=== PATIENT | female | born 1960 | race Caucasian/White ===

== ENCOUNTER 2020-01-11 16:42 | IRF | payer MEDICARE, MEDICAID, SELFPAY ==
--- NOTE | 2020-01-11 16:42 | ADMGEN ---
This patient, Fabiola Moncada, was admitted to [facility] Room 220-02. Patient/family oriented to hospital policies and general routines including ID bracelet, bed and alarms, visiting hours, pain management, procedures, bathroom and other care routines, personal items, smoking policy, room service/diet, and visiting hours. Valuables list has been completed. Information on how to activate the Rapid Response Team has been discussed. Patient/Family are encouraged to report perceived risks to care and to ask questions if they do not understand what they are told or what they should do.
[2020-01-11 18:51] VITALS: BMI 33.1
[2020-01-11 18:52] VITALS: BP 113/67; PULSE 78; RESP 18; TEMP 37; O2SAT 96
[2020-01-11] MEDS: SALMETEROL XINAFOATE 50 MCG DISKUS 1 PUFF INHALATION (20:06)
[2020-01-11] MEDS: SIMVASTATIN 20 MG TABLET 40 MG PO (21:43)
[2020-01-11] MEDS: GABAPENTIN 300 MG CAPSULE 600 MG PO (21:44)
[2020-01-11 22:00] VITALS: BP 114/51; PULSE 70; RESP 18; TEMP 35.8; O2SAT 98
[2020-01-12 05:14] LABS: Basophils Absolute Auto 0.1 K/mm3 (0.0-0.1); Basophils Percent Auto 0.6 % (0.2-1.2); Eosinophils Absolute Auto 0.7 K/mm3 (0-0.3); Hematocrit 25.9 % (37.0-47.0); Hemoglobin 8.1 g/dL (12.0-15.0); Immature Granulocyte Absolute 0.15 K/mm3 (0.00-0.031); Immature Granulocyte Percent A 1.8 % (0-0.5); Lymphocytes Absolute Auto 2.28 K/mm3 (0.9-3.2); Lymphocytes Percent Auto 27.3 % (18.3-44.2); Mean Corpuscular HGB Conc 31.3 g/dl (32-36); Mean Corpuscular Volume 89.6 fl (80-100); Mean Platelet Volume 7.9 fl (7.4-10.4); Monocytes Absolute Auto 0.7 K/mm3 (0.1-0.6); Monocytes Percent Auto 8.9 % (2.6-8.5); Neutrophils Absolute Auto 4.5 K/mm3 (1.3-6.7); Neutrophils Percent Auto 53.4 % (45.5-73.1); Nucleated Red Blood Cells Perc 0.2 % (0.0-0.2); Platelet Count Result 548 k/mm3 (150-375); Red Blood Count 2.89 M/mm3 (4.2-5.4); Red Cell Distribution Width 14.6 % (11.5-14.5); White Blood Count 8.4 K/mm3 (4.5-10.0)
[2020-01-12 05:30] LABS: Blood Urea Nitrogen 7 mg/dL (7-17); Calcium 8.8 mg/dL (8.4-10.2); Carbon Dioxide 32 mmol/L (22-30); Chloride 103 mmol/L (98-107); Estimated CRCL calculation 90 ml/min; Estimated Glomerular Filt Rate > 60; Glucose 100 mg/dL (65-105); Potassium 3.7 mmol/L (3.4-5.0); Sodium 138 mmol/L (137-145)
[2020-01-12 05:35] LABS: Hemoglobin A1C 6.3 % (<5.7)
[2020-01-12] MEDS: GABAPENTIN 300 MG CAPSULE 600 MG PO ×3 (05:39→21:21)
[2020-01-12 06:00] VITALS: BP 129/59; PULSE 60; RESP 18; TEMP 35.5; O2SAT 100
[2020-01-12 08:00] VITALS: PULSE 60; RESP 18; O2SAT 100
[2020-01-12] MEDS: SALMETEROL XINAFOATE 50 MCG DISKUS 1 PUFF INHALATION ×2 (08:03→20:52)
[2020-01-12] MEDS: DULOXETINE HCL 30 MG CAPSULE.DR PO (09:31)
[2020-01-12] MEDS: NABUMETONE 750 MG TABLET PO ×2 (09:31→17:22)
[2020-01-12] MEDS: LORATADINE 10 MG TABLET PO (09:31)
[2020-01-12] MEDS: ASPIRIN 81 MG CHEWABLE TABLET PO (09:31)
[2020-01-12] MEDS: FLUTICASONE PROPIONATE 0.05% NA SPR 16 GM BTL (*BKC) 2 SPRAY NASAL (09:32)
[2020-01-12] MEDS: FERROUS SULFATE 324 MG TABLET PO (09:32)
[2020-01-12] MEDS: PANTOPRAZOLE 40 MG TABLET PO (09:33)
[2020-01-12] MEDS: LIDOCAINE 5% PATCH 1 PATCH TOPICAL (09:33)
--- NOTE | 2020-01-12 13:06 | RPD ---
INDIVIDUALIZED PLAN OF CARE FOR Fabiola Moncada Brief Synthesis of Pre-Admission Screen, Post-Admission Evaluation and Therapy Evaluations: The patient presents to rehab with a right lower extremity osteomyelitis s/p BKA. Comorbidities include right below the knee amputation, hypertension, COPD, CAD, depression, peripheral neuropathy, peripheralr vascular disease, hyperlipidemia, peripheral arterial disease, intermittent hypotension, normocytic anemia, thrombocytosis, chronic back pain, GERD. The patient?s needs will be best met in an intensive program vs. at a lower level of care. The patient requires physician services for medical oversight, management of post-op complications in the setting of present comorbidities, and pain management. Post-op complications have included acute blood loss anemia, hypertension, hypotension, nausea and vomiting, hypocalcemia, leukocytosis, acute postoperative pain, and generalized weakness. The patient requires nursing services for anticoagulation therapy, DVT prophylactics, possible IV administration, infection protection, medication management and education, pressure relief, and wound care. Deficits include:ADLs, Balance, Endurance, Family Training/Education, Mobility, Pain Management, ROM, Safety, Strength, and Transfers. Pad Machine Operator/Case Management for: Discharge Planning and Patient/Family Counseling Physical Therapy: 5 days per week for 90 minutes. Treatments may include: Therapeutic Exercise, Gait Training, Neuromuscular Re-education, Transfer Training, Community Reintegration, Bed Mobility, Patient/Family Education, Wheelchair Mobility Group Therapy/Concurrent Therapy Rationales: -Improve attention span during functional activities in a distracted environment. -Enhance problem solving and/or adequate judgment skills during functional activities in a distracted environment. -Promote increased safety awareness in a distracted environment to reduce fall risk with functional tasks, transfers, and ambulation to allow a more safe, self-sufficient return to the home environment. -Improve dynamic balance skills to promote safety and independence with functional activities in a distracted environment for maximum gain. Occupational Therapy: 5 days per week for 90 minutes. Treatments may include: Therapeutic Exercise, Therapeutic Activity, Cognitive Training, Self-Care Transfer Training, Community Reintegration, Home Management, Patient/Family Education, Wheelchair Mobility Training, Energy Conservation Training Group Therapy/Concurrent Therapy Rationales: -Allow therapist to observe and teach generalization and carry-over of skills learned in individual therapy. -Enhance problem solving and sequencing skills during therapeutic activities in a distracted environment. -Promote increased safety awareness in a realistic setting to reduce fall risk with functional tasks due to visual and verbal distractions. -Increase functional level with ADLs, ADL transfers and use of adaptive equipment through therapeutic activities with others while promoting safety to allow a more safe, self-sufficient return home. Medical Prognosis: Good Anticipated Length of Stay: 14 days Rehab Goals: Eating Goal: 06-Independent Oral Hygiene Goal: 06-Independent Toileting Hygiene Goal: 06-Independent Shower/Bathe Self Goal: 06-Independent Upper Body Dressing Goal: 06-Independent Lower Body Dressing Goal: 06-Independent Putting On/Taking Off Footwear Goal: 06-Independent Rolling Left and Right Goal: 06-Independent Sit to Lying Goal: 06-Independent Lying to Sitting on Side of Bed Goal: 06-Independent Sit to Stand Goal: 06-Independent Chair/Gky-bp-Erqms Transfer Goal: 06-Independent Toilet Transfer Goal: 06-Independent Car Transfer Goal: 06-Independent Walk 10' Goal: 06-Independent Walk 50' with Two Turns Goal: 06-Independent Walk 150' Goal: 06-Independent Walk 10' on Uneven Surface Goal: 06-Independent 1 Step (Curb) Goal: 06-Independent 4 Step
[2020-01-12 14:00] VITALS: BP 126/59; PULSE 66; RESP 20; TEMP 26.6; O2SAT 99
--- NOTE | 2020-01-12 14:44 | REHAB_ITS ---
DATE OF SERVICE: 01/12/2020 A 59-year-old right-handed female has been admitted to [facility] acute rehab with primary rehab impairment category of amputation of the lower extremity and the etiological diagnosis of right lower extremity osteomyelitis for which she has undergone right below-knee amputation. The patient was seen [id number] on 01/12/2020 at 10:00 a.m. HISTORY OF PRESENT ILLNESS: A 59-year-old right-handed female with past medical history of: 1. Hypertension. 2. COPD. 3. Neuropathy. 4. Peripheral vascular disease with history of having had revascularization of the right lower extremity. 5. Osteomyelitis of the right calcaneum with a history of right calcaneal removal in 08/2019, initially presented to [facility] from [facility]SH on 01/02/2020 for suspected osteomyelitis of the right heel. After initial surgery in August, she was discharged to a assisted facility where she completed 6 weeks of IV antibiotics including vancomycin, clindamycin, and Flagyl, but in November of 2019, the patient had a right ankle fracture for which she underwent ORIF and was issued a walking boot. She did well up until around 12/31, but then started having increasing pain in her right lower extremity along with swelling, bloody discharge. At that time, radiological investigation of the right foot and ankle documented chronic deformity of the right medial malleolus with soft tissue swelling, extensive deformity with mixed lucency and sclerosis of the calcaneal bone with chronically deformed bones of the mid hind foot with sclerosis and osteophytosis and diffuse soft tissue swelling. At that time, the right lower extremity arterial duplex ultrasound revealed possible areas of stenosis of superficial femoral artery and on 01/04, she developed significant leukocytosis, sepsis. Workup was negative with exception of the right lower extremity infection and the UA revealed mild UTI. ID was consulted and she was started on IV vancomycin, cefepime, and Flagyl. Orthopedic and vascular surgeons were consulted. At that time, additional radiological investigation revealed fluid within the joint space with gas suggestive of [id number] osteo and large fluid collection between the anterior tibial and peroneal arteries that were consistent with septic arthritis and abscess formation. She underwent right below-knee amputation on 01/[address] Johnny Santana. Postoperatively, she developed postoperative pain, anemia, hypertension, intermittent hypotension, nausea, hypocalcemia, leukocytosis, acute postoperative pain and generalized weakness. 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 The patient is awake, alert, and oriented x4. She was discharged to [facility] on aspirin for DVT prophylaxis. She has not traveled outside the [place] or had contact with someone who is ill or who has travelled outside the [place] in the last 21 days. She has not traveled to the area of the [place] that is experiencing known transmission of the coronavirus and has not had close personal contact with anyone that has. She does not have a fever. She is not experiencing lower respiratory illness symptom, but she does complain of pain, it is out of control. She was initiated at the acute care facility and was transferred to from the [facility] on 01/11/2020. SURGERY OR FALLS: The patient has had major surgery in the last 100 days prior to admission. She has had falls in the past year. She has had no falls with injury in the last year. She has had major surgery this admission and has had falls without injury in the last 6 months as well. PAST MEDICAL HISTORY: 1. Right ankle fracture in November of 2019. 2.
[2020-01-12] MEDS: SIMVASTATIN 20 MG TABLET 40 MG PO (21:20)
[2020-01-12 22:00] VITALS: BP 148/85; PULSE 77; RESP 18; TEMP 36.4; O2SAT 97
[2020-01-13] MEDS: GABAPENTIN 300 MG CAPSULE 600 MG PO ×3 (05:52→21:28)
[2020-01-13 06:00] VITALS: BP 149/73; PULSE 60; RESP 18; TEMP 36.4; O2SAT 96
[2020-01-13] MEDS: SALMETEROL XINAFOATE 50 MCG DISKUS 1 PUFF INHALATION ×2 (08:38→20:47)
[2020-01-13 08:40] VITALS: O2SAT 97
[2020-01-13] MEDS: DULOXETINE HCL 30 MG CAPSULE.DR PO (08:57)
[2020-01-13] MEDS: FERROUS SULFATE 324 MG TABLET PO (08:57)
[2020-01-13] MEDS: NABUMETONE 750 MG TABLET PO ×2 (08:57→17:04)
[2020-01-13] MEDS: FLUTICASONE PROPIONATE 0.05% NA SPR 16 GM BTL (*BKC) 2 SPRAY NASAL (08:57)
[2020-01-13] MEDS: ASPIRIN 81 MG CHEWABLE TABLET PO (08:57)
[2020-01-13] MEDS: LORATADINE 10 MG TABLET PO (08:58)
[2020-01-13] MEDS: LIDOCAINE 5% PATCH 1 PATCH TOPICAL (08:58)
[2020-01-13] MEDS: PANTOPRAZOLE 40 MG TABLET PO (08:58)
--- NOTE | 2020-01-13 12:32 | WPDNEURORHBP ---
Subjective Date/time seen: S/P RBK amputation for osteomyelitis with hypertension,COPD,Neuropathy ,PVD, and H/Ndjfkhgbuohlna65/21/20 12:32 Review of Systems Review of Systems: All systems reviewed & are unremarkable except as noted in HPI and below Functional Status Ambulation Ability Ability to Ambulate 10 Feet: Contact Guard Ambulation Assistive Devices: Walker, Wheeled Exam Const: General: cooperative, comfortable, no acute distress and well developed Orientation/consciousness: patient oriented x3 Other: amputee HENMT: Head: normal to inspection Ears: hearing grossly normal bilaterally General nose exam: Normal external nose present and No nasal discharge present Face and sinus: normal facial exam Mouth: Yes Normal oral and palatal mucosa present Eyes: General: appearance normal, both eyes and all related structures Neck: Neck: full ROM and no lymphadenopathy Resp: Effort & Inspection: normal respiratory effort Auscultation: clear to auscultation bilaterally Cardio: Rate: regular rate Rhythm: regular rhythm GI: Auscultation: normal bowel sounds Skin: General skin exam: no rashes or lesions noted Neuro: General: patient oriented x3 Cranial nerves: Yes CN's II-XII intact bilaterally Sensory Exam: Sensory deficit (Neuro) Extrem: General: normal to inspection Psych: Appearance: grossly normal Objective Data Vital Signs Vital Signs: Vital Signs - 24 hr 01/12/20 14:00 01/12/20 22:00 01/13/20 06:00 Temperature 26.6 C L 36.4 C 36.4 C Pulse Rate 66 77 60 Respiratory Rate 20 18 18 Blood Pressure 126/59 L 148/85 H 149/73 H Pulse Oximetry 99 97 96 01/13/20 08:40 Temperature Pulse Rate Respiratory Rate Blood Pressure Pulse Oximetry 97 Intake/Output Intake/Output: Intake & Output 01/10/20 01/11/20 01/12/20 01/13/20 23:59 23:59 23:59 23:59 Intake Total 720 240 Balance 720 240 Meds/Results Medications: Active Medications Generic Name Dose Route Start Last Admin Trade Name Freq PRN Reason Stop Dose Admin Acetaminophen 500 mg 01/11/20 18:37 Tylenol Tablet PO Q6H PRN pain 1-5 Hydrocodone Bitart/Acetaminophen 1 tab 01/12/20 09:40 01/13/20 09:09 [place] 5-325 Mg PO 1 tab Q6H PRN Administration Pain 6-10 Albuterol 2.5 mg 01/12/20 18:46 Albuterol Sulf Neb 2.5mg/0.5ml INHALATION Q4HRT PRN Shortness Of Breath Artificial Tears 1 drop 01/11/20 18:37 Artificial Tears EACH EYE TID PRN Dry Eye(S) Aspirin 81 mg 01/12/20 09:00 01/13/20 08:57 Aspirin Chewable PO 81 mg DAILY VALENCIA Administration Duloxetine HCl 30 mg 01/12/20 09:00 01/13/20 08:57 Cymbalta PO 30 mg DAILY VALENCIA Administration Ferrous Sulfate 324 mg 01/12/20 08:00 01/13/20 08:57 Ferrous Sulfate PO 324 mg DAILY@0800 VALENCIA Administration Fluticasone Propionate 2 spray 01/12/20 09:00 01/13/20 08:57 Flonase 0.05% Nasal [place] NASAL 2 spray DAILY VALENCIA Administration Gabapentin 600 mg 01/11/20 22:00 01/13/20 05:52 Neurontin PO 600 mg Q8HR VALENCIA Administration Lidocaine 1 patch 01/12/20 09:00 01/13/20 08:58 Lidoderm TOPICAL 1 patch DAILY VALENCIA Administration Loratadine 10 mg 01/12/20 09:00 01/13/20 08:58 Claritin PO 10 mg DAILY VALENCIA Administration Nabumetone 750 mg 01/12/20 08:00 01/13/20 08:57 Relafen PO 750 mg BIDWM VALENCIA Administration Pantoprazole Sodium 40 mg 01/12/20 09:00 01/13/20 08:58 Protonix PO 40 mg QAM VALENCIA Administration Polyethylene Glycol 17 gm 01/11/20 18:37 Miralax PO DAILY PRN Constipation Salmeterol Xinafoate 1 puff 01/11/20 20:00 01/13/20 08:38 Serevent 50 Mcg Diskus INHALATION 1 puff Q12HRT VALENCIA Administration Senna/Docusate Sodium 1 tab 01/11/20 18:37 Senokot S Tablet PO HS PRN Constipation Simvastatin 40 mg 01/11/20 21:00 01/12/20 21:20 Zocor PO 40 mg HS VALENCIA Administration Progress
[2020-01-13 14:00] VITALS: BP 127/80; PULSE 70; RESP 18; TEMP 36.9; O2SAT 99
[2020-01-13 20:00] VITALS: PULSE 60; RESP 18; O2SAT 96
[2020-01-13 20:48] VITALS: PULSE 72; RESP 16; O2SAT 96
[2020-01-13] MEDS: SIMVASTATIN 20 MG TABLET 40 MG PO (21:28)
[2020-01-13 21:58] VITALS: BP 124/57; PULSE 60; RESP 18; TEMP 36.1; O2SAT 96
[2020-01-14] MEDS: GABAPENTIN 300 MG CAPSULE 600 MG PO ×3 (05:56→21:16)
[2020-01-14 06:00] VITALS: BP 125/70; PULSE 64; RESP 18; TEMP 36.1; O2SAT 100
[2020-01-14] MEDS: DULOXETINE HCL 30 MG CAPSULE.DR PO (08:45)
[2020-01-14] MEDS: NABUMETONE 750 MG TABLET PO ×2 (08:45→17:20)
[2020-01-14] MEDS: FLUTICASONE PROPIONATE 0.05% NA SPR 16 GM BTL (*BKC) 2 SPRAY NASAL (08:45)
[2020-01-14] MEDS: FERROUS SULFATE 324 MG TABLET PO (08:45)
[2020-01-14] MEDS: ASPIRIN 81 MG CHEWABLE TABLET PO (08:45)
[2020-01-14] MEDS: PANTOPRAZOLE 40 MG TABLET PO (08:46)
[2020-01-14] MEDS: LORATADINE 10 MG TABLET PO (08:46)
[2020-01-14] MEDS: LIDOCAINE 5% PATCH 1 PATCH TOPICAL (08:46)
[2020-01-14] MEDS: SALMETEROL XINAFOATE 50 MCG DISKUS 1 PUFF INHALATION ×2 (09:15→20:38)
[2020-01-14 09:55] VITALS: O2SAT 96
[2020-01-14 13:17] VITALS: BMI 33.1
[2020-01-14 14:00] VITALS: BP 130/72; PULSE 68; RESP 20; TEMP 36.9; O2SAT 100
[2020-01-14 20:00] VITALS: PULSE 70; RESP 18; O2SAT 98
[2020-01-14] MEDS: SIMVASTATIN 20 MG TABLET 40 MG PO (21:16)
[2020-01-14 21:52] VITALS: BP 143/52; PULSE 70; RESP 18; TEMP 36.1; O2SAT 98
[2020-01-15 06:00] VITALS: BP 134/72; PULSE 92; RESP 18; TEMP 36.4; O2SAT 99
[2020-01-15] MEDS: GABAPENTIN 300 MG CAPSULE 600 MG PO ×3 (06:13→21:02)
[2020-01-15] MEDS: SALMETEROL XINAFOATE 50 MCG DISKUS 1 PUFF INHALATION ×2 (07:56→19:46)
[2020-01-15] MEDS: NABUMETONE 750 MG TABLET PO ×2 (09:37→17:27)
[2020-01-15] MEDS: LIDOCAINE 5% PATCH 1 PATCH TOPICAL (09:37)
[2020-01-15] MEDS: DULOXETINE HCL 30 MG CAPSULE.DR PO (09:38)
[2020-01-15] MEDS: PANTOPRAZOLE 40 MG TABLET PO (09:38)
[2020-01-15] MEDS: ASPIRIN 81 MG CHEWABLE TABLET PO (09:38)
[2020-01-15] MEDS: LORATADINE 10 MG TABLET PO (09:38)
[2020-01-15] MEDS: FLUTICASONE PROPIONATE 0.05% NA SPR 16 GM BTL (*BKC) 2 SPRAY NASAL (09:38)
[2020-01-15] MEDS: FERROUS SULFATE 324 MG TABLET PO (09:38)
[2020-01-15 14:00] VITALS: BP 120/70; PULSE 79; RESP 18; TEMP 36.8; O2SAT 95
--- NOTE | 2020-01-15 14:00 | WPDNEURORHBP ---
Subjective Date/time seen: 01/15/20 14:00 Interval history: this 59-year-old is here after having had right BKA the etiology of which is combined peripheral neuropathy peripheral vascular disease and osteomyelitis the patient is significant amount of pain and we have to increase some of the narcotic. She uses oxygen at night and uses the stump protector which will continue through January 24 Beside the pain and discomfort the patient denies any headache nausea vomiting chest pain or shortness of breath Review of Systems Review of Systems: All systems reviewed & are unremarkable except as noted in HPI and below Functional Status Ambulation Ability Ability to Ambulate 10 Feet: Contact Guard Ability to Ambulate 50 Feet With 2 Turns: Contact Guard Ambulation Assistive Devices: Walker, Wheeled Exam Const: General: no acute distress and uncomfortable HENMT: General nose exam: Normal nares present Mouth: Yes moist mucous membranes Eyes: General: appearance normal, both eyes and all related structures Neck: Neck: supple and no JVD Resp: Effort & Inspection: normal respiratory effort Auscultation: clear to auscultation bilaterally Cardio: Rate: regular rate Rhythm: regular rhythm GI: GI Palp: Yes Soft to palpation Auscultation: normal bowel sounds Skin: General skin exam: normal color and no rashes or lesions noted Neuro: Other: patient is awake alert well oriented denies any headache nausea vomiting chest pain shortness of breath she does have evidence of generalized weakness related to multiple factors which of course include the peripheral vascular disease in the peripheral neuropathy however progressing in the rehab fairly well needing assistance all the activities of daily living at this point Extrem: Other: the right BKA seem to be healthy Psych: Mental Status: mental status grossly normal Objective Data Vital Signs Vital Signs: Vital Signs - 24 hr 01/14/20 20:00 01/14/20 21:52 01/15/20 06:00 Temperature 36.1 C L 36.4 C Pulse Rate 70 70 92 Respiratory Rate 18 18 18 Blood Pressure 143/52 H 134/72 Pulse Oximetry 98 98 99 Intake/Output Intake/Output: Intake & Output 01/12/20 01/13/20 01/14/20 01/15/20 23:59 23:59 23:59 23:59 Intake Total 720 720 720 600 Balance 720 720 720 600 Meds/Results Medications: Active Medications Generic Name Dose Route Start Last Admin Trade Name Freq PRN Reason Stop Dose Admin Acetaminophen 500 mg 01/11/20 18:37 Tylenol Tablet PO Q6H PRN pain 1-5 Hydrocodone Bitart/Acetaminophen 1 tab 01/15/20 11:00 01/15/20 11:51 [place] 5-325 Mg PO 1 tab Q4H VALENCIA Administration Albuterol 2.5 mg 01/12/20 18:46 Albuterol Sulf Neb 2.5mg/0.5ml INHALATION Q4HRT PRN Shortness Of Breath Artificial Tears 1 drop 01/11/20 18:37 Artificial Tears EACH EYE TID PRN Dry Eye(S) Aspirin 81 mg 01/12/20 09:00 01/15/20 09:38 Aspirin Chewable PO 81 mg DAILY VALENCIA Administration Diphenoxylate HCl/Atropine 1 tablet 01/14/20 14:48 01/14/20 16:02 Lomotil Tab 2.5 Mg PO 1 tablet PRN PRN Administration Diarrhea Duloxetine HCl 30 mg 01/12/20 09:00 01/15/20 09:38 Cymbalta PO 30 mg DAILY VALENCIA Administration Ferrous Sulfate 324 mg 01/12/20 08:00 01/15/20 09:38 Ferrous Sulfate PO 324 mg DAILY@0800 VALENCIA Administration Fluticasone Propionate 2 spray 01/12/20 09:00 01/15/20 09:38 Flonase 0.05% Nasal [place] NASAL 2 spray DAILY VALENCIA Administration Gabapentin 600 mg 01/11/20 22:00 01/15/20 06:13 Neurontin PO 600 mg Q8HR VALENCIA Administration Lidocaine 1 patch 01/12/20 09:00 01/15/20 09:37 Lidoderm TOPICAL 1 patch DAILY VALENCIA Administration Loratadine 10 mg 01/12/20 09:00 01/15/20 09:38 Claritin PO 10 mg DAILY VALENCIA Administration Nabumetone 750 mg 01/12/20 08:00 01/15/20 09:37 Relafen PO 750 mg BIDWM VALENCIA Administration Pantoprazole Sodium 40 mg
--- NOTE | 2020-01-15 14:20 | PCPTNOTE ---
Angelina Nuñez PTA completed an inpatient rehab wheelchair evaluation on Fabiola [place] on 01/15/2020. The patient is unable to safely and independently ambulate household distances due to their current impairments. Their diagnosis is Right BKA and their impairments include decreased strength, decreased endurance, decreased range of motion, decreased balance, lower extremity weakness, and ataxia. Fabiola's weight bearing status is weight-bearing as tolerated on the left lower leg and non-weight bearing on right lower leg . The patient demonstrates significant functional mobility limitations that impair their ability to participate in mobility-related activities of daily living (MRADLs), including toileting, feeding, dressing, grooming, and bathing in the customary locations in the home. These limitations cannot be sufficiently resolved by the use of an appropriately fitted cane or walker. It is recommended that the patient utilize a wheelchair for functional mobility within the home in order to facilitate optimal safety, independence and participation in all MRADL's and adequately access their home environment on a regular basis. The patient's home provides adequate access between rooms, maneuvering space, and surfaces to accommodate the recommended wheelchair. The use of a wheelchair for functional mobility is strongly recommended and the patient is receptive to using the wheelchair. The use of this wheelchair will significantly improve the patient's ability to participate in MRADLS and the patient will use it on a regular basis in the home. This will facilitate optimal safety, independence, and participation. The patient has demonstrated sufficient physical and mental capabilities needed to safely propel a manual wheelchair that is provided in the home during a typical day. Recommended Wheelchair Frame: standard Recommended Wheelchair Size: 18x18 Recommended Wheelchair Cushion: standard Wheelchair Leg Recommendations: Right residual limb leg rest and left elevating swing away leg rest. - Elevating legrests are recommended because the patient has significant edema of the lower extremities that requires an elevating legrest. -Anti-tippers are recommended due to patient demonstrating increased risk for falls. They would benefit from anti-tippers with added safety and stabilization. Angelina [place] ILDEFONSO 01/15/2020 Evaluating Therapist Date I agree with and certify that the above recommendation is medically necessary. Referring Physician Date I agree with and certify that the above recommendation is medically necessary. Referring Physician Date
--- NOTE | 2020-01-15 18:32 | PC.NURSE ---
dsg to stump changed cleansed with sterile saline xeroform strip to incision line 4x4's, kerlix and wholesale parts salesperson. looks clean and healing nicely. Well approximated and sutures intact. Changed dsgs on 01/13 and today 01/14.
[2020-01-15] MEDS: SIMVASTATIN 20 MG TABLET 40 MG PO (21:02)
[2020-01-15 22:00] VITALS: BP 150/62; PULSE 55; RESP 18; TEMP 36.5; O2SAT 94
[2020-01-16 06:00] VITALS: BP 121/56; PULSE 60; RESP 19; TEMP 36.7; O2SAT 100
[2020-01-16] MEDS: GABAPENTIN 300 MG CAPSULE 600 MG PO ×3 (06:24→21:46)
[2020-01-16] MEDS: SALMETEROL XINAFOATE 50 MCG DISKUS 1 PUFF INHALATION ×2 (07:55→20:59)
[2020-01-16] MEDS: NABUMETONE 750 MG TABLET PO ×2 (08:22→17:15)
[2020-01-16] MEDS: LORATADINE 10 MG TABLET PO (08:22)
[2020-01-16] MEDS: DULOXETINE HCL 30 MG CAPSULE.DR PO (08:22)
[2020-01-16] MEDS: FERROUS SULFATE 324 MG TABLET PO (08:22)
[2020-01-16] MEDS: LIDOCAINE 5% PATCH 1 PATCH TOPICAL (08:22)
[2020-01-16] MEDS: ASPIRIN 81 MG CHEWABLE TABLET PO (08:23)
[2020-01-16] MEDS: FLUTICASONE PROPIONATE 0.05% NA SPR 16 GM BTL (*BKC) 2 SPRAY NASAL (08:23)
[2020-01-16] MEDS: PANTOPRAZOLE 40 MG TABLET PO (08:23)
--- NOTE | 2020-01-16 11:34 | WPDNEURORHBP ---
Subjective Date/time seen: 01/16/20 11:34 Interval history: this 59-year-old woman is here after having had a right BKA she has COPD and uses oxygen at night she has peripheral vascular disease for which the patient has had procedures performed in the past She denies any headache nausea vomiting chest pain shortness of breath fever chills or sore throat Review of Systems Review of Systems: All systems reviewed & are unremarkable except as noted in HPI and below Functional Status Ambulation Ability Ability to Ambulate 10 Feet: Contact Guard Ability to Ambulate 50 Feet With 2 Turns: Contact Guard Ambulation Assistive Devices: Walker, Wheeled Exam Const: General: comfortable and no acute distress HENMT: General nose exam: Normal nares present Mouth: Yes moist mucous membranes Eyes: General: appearance normal, both eyes and all related structures Neck: Neck: supple and no JVD Resp: Effort & Inspection: normal respiratory effort Auscultation: clear to auscultation bilaterally Cardio: Rate: regular rate Rhythm: regular rhythm GI: GI Palp: Yes Soft to palpation and Yes Firmness to palpation present (GI) Auscultation: normal bowel sounds Skin: General skin exam: normal color and no rashes or lesions noted Neuro: Other: patient is awake alert and well oriented has normal cranial examination and evidence of peripheral vascular disease and neuropathy the stump is doing fairly well she is engage in therapy quite well Extrem: Other: the right BKA is looking good Psych: Mental Status: mental status grossly normal Objective Data Vital Signs Vital Signs: Vital Signs - 24 hr 01/15/20 14:00 01/15/20 22:00 01/16/20 06:00 Temperature 36.8 C 36.5 C 36.7 C Pulse Rate 79 55 L 60 Respiratory Rate 18 18 19 Blood Pressure 120/70 150/62 H 121/56 L Pulse Oximetry 95 94 100 Intake/Output Intake/Output: Intake & Output 01/13/20 01/14/20 01/15/20 01/16/20 23:59 23:59 23:59 23:59 Intake Total 720 720 840 240 Balance 720 720 840 240 Meds/Results Medications: Active Medications Generic Name Dose Route Start Last Admin Trade Name Freq PRN Reason Stop Dose Admin Acetaminophen 500 mg 01/11/20 18:37 Tylenol Tablet PO Q6H PRN pain 1-5 Hydrocodone Bitart/Acetaminophen 1 tab 01/15/20 11:00 01/16/20 11:05 [place] 5-325 Mg PO 1 tab Q4H VALENCIA Administration Albuterol 2.5 mg 01/12/20 18:46 Albuterol Sulf Neb 2.5mg/0.5ml INHALATION Q4HRT PRN Shortness Of Breath Artificial Tears 1 drop 01/11/20 18:37 Artificial Tears EACH EYE TID PRN Dry Eye(S) Aspirin 81 mg 01/12/20 09:00 01/16/20 08:23 Aspirin Chewable PO 81 mg DAILY VALENCIA Administration Diphenoxylate HCl/Atropine 1 tablet 01/14/20 14:48 01/16/20 08:26 Lomotil Tab 2.5 Mg PO 1 tablet PRN PRN Administration Diarrhea Duloxetine HCl 30 mg 01/12/20 09:00 01/16/20 08:22 Cymbalta PO 30 mg DAILY VALENCIA Administration Ferrous Sulfate 324 mg 01/12/20 08:00 01/16/20 08:22 Ferrous Sulfate PO 324 mg DAILY@0800 VALENCIA Administration Fluticasone Propionate 2 spray 01/12/20 09:00 01/16/20 08:23 Flonase 0.05% Nasal [place] NASAL 2 spray DAILY VALENCIA Administration Gabapentin 600 mg 01/11/20 22:00 01/16/20 06:24 Neurontin PO 600 mg Q8HR VALENCIA Administration Lidocaine 1 patch 01/12/20 09:00 01/16/20 08:22 Lidoderm TOPICAL 1 patch DAILY VALENCIA Administration Loratadine 10 mg 01/12/20 09:00 01/16/20 08:22 Claritin PO 10 mg DAILY VALENCIA Administration Nabumetone 750 mg 01/12/20 08:00 01/16/20 08:22 Relafen PO 750 mg BIDWM VALENCIA Administration Pantoprazole Sodium 40 mg 01/12/20 09:00 01/16/20 08:23 Protonix PO 40 mg QAM VALENCIA Administration Polyethylene Glycol 17 gm 01/11/20 18:37 Miralax PO DAILY PRN Constipation Salmeterol Xinafoate 1 puff 01/11/20 20:00 01/16/20 07:55 Serevent 50 Mcg Diskus INHALATION 1 pu
[2020-01-16 14:00] VITALS: BP 108/58; PULSE 82; RESP 18; TEMP 36.8; O2SAT 96
[2020-01-16] MEDS: SIMVASTATIN 20 MG TABLET 40 MG PO (21:46)
[2020-01-16 22:00] VITALS: BP 143/49; PULSE 65; RESP 18; TEMP 35.9; O2SAT 95
[2020-01-17] MEDS: GABAPENTIN 300 MG CAPSULE 600 MG PO ×3 (05:03→21:24)
[2020-01-17 06:00] VITALS: BP 136/72; PULSE 69; RESP 18; TEMP 35.6; O2SAT 100
[2020-01-17] MEDS: SALMETEROL XINAFOATE 50 MCG DISKUS 1 PUFF INHALATION ×2 (07:57→20:18)
[2020-01-17] MEDS: PANTOPRAZOLE 40 MG TABLET PO (08:53)
[2020-01-17] MEDS: ASPIRIN 81 MG CHEWABLE TABLET PO (08:53)
[2020-01-17] MEDS: DULOXETINE HCL 30 MG CAPSULE.DR PO (08:53)
[2020-01-17] MEDS: LIDOCAINE 5% PATCH 1 PATCH TOPICAL (08:53)
[2020-01-17] MEDS: NABUMETONE 750 MG TABLET PO ×2 (08:53→17:12)
[2020-01-17] MEDS: FERROUS SULFATE 324 MG TABLET PO (08:53)
[2020-01-17] MEDS: LORATADINE 10 MG TABLET PO (08:53)
[2020-01-17] MEDS: FLUTICASONE PROPIONATE 0.05% NA SPR 16 GM BTL (*BKC) 2 SPRAY NASAL (08:54)
[2020-01-17 10:59] VITALS: BP 114/70; PULSE 73; O2SAT 96
[2020-01-17 14:00] VITALS: BP 131/68; PULSE 72; RESP 18; TEMP 36; O2SAT 95
--- NOTE | 2020-01-17 15:59 | PCCCNOTE ---
On 01/17/20, the student, [Aquiles Levine ], provided care and completed [facility] documentation on this patient. I have reviewed the student's documentation and agree with the findings.
[2020-01-17] MEDS: SIMVASTATIN 20 MG TABLET 40 MG PO (21:24)
[2020-01-17 22:00] VITALS: BP 131/54; PULSE 74; RESP 18; TEMP 36.7; O2SAT 96
[2020-01-18 06:00] VITALS: BP 131/54; PULSE 61; RESP 18; TEMP 36.8; O2SAT 98
[2020-01-18] MEDS: GABAPENTIN 300 MG CAPSULE 600 MG PO ×3 (06:21→20:42)
[2020-01-18] MEDS: SALMETEROL XINAFOATE 50 MCG DISKUS 1 PUFF INHALATION ×2 (08:03→20:10)
[2020-01-18] MEDS: DULOXETINE HCL 30 MG CAPSULE.DR PO (09:41)
[2020-01-18] MEDS: LORATADINE 10 MG TABLET PO (09:41)
[2020-01-18] MEDS: FLUTICASONE PROPIONATE 0.05% NA SPR 16 GM BTL (*BKC) 2 SPRAY NASAL (09:41)
[2020-01-18] MEDS: NABUMETONE 750 MG TABLET PO ×2 (09:41→17:06)
[2020-01-18] MEDS: ASPIRIN 81 MG CHEWABLE TABLET PO (09:41)
[2020-01-18] MEDS: FERROUS SULFATE 324 MG TABLET PO (09:41)
[2020-01-18] MEDS: PANTOPRAZOLE 40 MG TABLET PO (09:41)
[2020-01-18] MEDS: LIDOCAINE 5% PATCH 1 PATCH TOPICAL (09:42)
--- NOTE | 2020-01-18 12:27 | WPDNEURORHBP ---
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 she is doing fairly well and we will adjust her pain medication for when she is awake or Evelio picture is of improvement denies any headache nausea vomiting chest pain shortness of breath fever chills sore throat Review of Systems Review of Systems: All systems reviewed & are unremarkable except as noted in HPI and below Functional Status Ambulation Ability Ability to Ambulate 10 Feet: Standby Assistance Ability to Ambulate 50 Feet With 2 Turns: Contact Guard Ambulation Assistive Devices: Walker, Wheeled Exam Const: General: comfortable and no acute distress HENMT: General nose exam: Normal nares present Mouth: Yes moist mucous membranes Eyes: General: appearance normal, both eyes and all related structures Neck: Neck: supple and no JVD Resp: Effort & Inspection: normal respiratory effort Auscultation: clear to auscultation bilaterally Cardio: Rate: regular rate Rhythm: regular rhythm GI: GI Palp: Yes Soft to palpation Auscultation: normal bowel sounds Skin: General skin exam: normal color and no rashes or lesions noted Neuro: Other: patient's mental status is normal cranial examination is normal her strength is improving in lower extremities and the upper extremities quite well and she is happy with the care Extrem: Other: the right BKA looks clean Psych: Mental Status: mental status grossly normal Objective Data Vital Signs Vital Signs: Vital Signs - 24 hr 01/17/20 14:00 01/17/20 22:00 01/18/20 06:00 Temperature 36.0 C L 36.7 C 36.8 C Pulse Rate 72 74 61 Respiratory Rate 18 18 18 Blood Pressure 131/68 131/54 L 131/54 L Pulse Oximetry 95 96 98 Intake/Output Intake/Output: Intake & Output 01/15/20 01/16/20 01/17/20 01/18/20 23:59 23:59 23:59 23:59 Intake Total 840 720 720 240 Balance 840 720 720 240 Meds/Results Medications: Active Medications Generic Name Dose Route Start Last Admin Trade Name Freq PRN Reason Stop Dose Admin Acetaminophen 500 mg 01/11/20 18:37 Tylenol Tablet PO Q6H PRN pain 1-5 Hydrocodone Bitart/Acetaminophen 1 tab 01/18/20 13:00 [place] 5-325 Mg PO Q4HWA [facility] Albuterol 2.5 mg 01/12/20 18:46 Albuterol Sulf Neb 2.5mg/0.5ml INHALATION Q4HRT PRN Shortness Of Breath Artificial Tears 1 drop 01/11/20 18:37 Artificial Tears EACH EYE TID PRN Dry Eye(S) Aspirin 81 mg 01/12/20 09:00 01/18/20 09:41 Aspirin Chewable PO 81 mg DAILY [facility] Administration Diphenoxylate HCl/Atropine 1 tablet 01/14/20 14:48 01/16/20 08:26 Lomotil Tab 2.5 Mg PO 1 tablet PRN PRN Administration Diarrhea Duloxetine HCl 30 mg 01/12/20 09:00 01/18/20 09:41 Cymbalta PO 30 mg DAILY [facility] Administration Ferrous Sulfate 324 mg 01/12/20 08:00 01/18/20 09:41 Ferrous Sulfate PO 324 mg DAILY@0800 [facility] Administration Fluticasone Propionate 2 spray 01/12/20 09:00 01/18/20 09:41 Flonase 0.05% Nasal [place] NASAL 2 spray DAILY [facility] Administration Gabapentin 600 mg 01/11/20 22:00 01/18/20 06:21 Neurontin PO 600 mg Q8HR [facility] Administration Lidocaine 1 patch 01/12/20 09:00 01/18/20 09:42 Lidoderm TOPICAL 1 patch DAILY [facility] Administration Loratadine 10 mg 01/12/20 09:00 01/18/20 09:41 Claritin PO 10 mg DAILY [facility] Administration Nabumetone 750 mg 01/12/20 08:00 01/18/20 09:41 Relafen PO 750 mg BIDWM [facility] Administration Pantoprazole Sodium 40 mg 01/12/20 09:00 01/18/20 09:41 Protonix PO 40 mg QAM [facility] Administration Polyethylene Glycol 17 gm 01/11/20 18:37 Miralax PO DAILY PRN Constipation Salmeterol Xinafoate 1 puff 01/11/20 20:00 01/18/20 08:03 Serevent 50 Mcg Diskus INHALATION 1 puff Q12HRT [facility] Administration Senna/Docusate Sodium 1 tab 01/11/20 18:37 Senokot S Tablet PO HS PRN Con
[2020-01-18 14:00] VITALS: BP 126/64; PULSE 76; RESP 20; TEMP 36.7; O2SAT 97
[2020-01-18] MEDS: SIMVASTATIN 20 MG TABLET 40 MG PO (20:41)
[2020-01-18 21:05] VITALS: O2SAT 96
[2020-01-18 22:00] VITALS: BP 128/74; PULSE 67; RESP 18; TEMP 36.4; O2SAT 97
[2020-01-19 04:44] LABS: Basophils Absolute Auto 0.1 K/mm3 (0.0-0.1); Basophils Percent Auto 1.2 % (0.2-1.2); Eosinophils Absolute Auto 0.3 K/mm3 (0-0.3); Eosinophils Percent Auto 4.3 % (0-4.4); Hemoglobin 9.8 g/dL (12.0-15.0); Immature Granulocyte Absolute 0.02 K/mm3 (0.00-0.031); Immature Granulocyte Percent A 0.3 % (0-0.5); Lymphocytes Absolute Auto 1.92 K/mm3 (0.9-3.2); Lymphocytes Percent Auto 28.4 % (18.3-44.2); Mean Corpuscular HGB Conc 31.6 g/dl (32-36); Mean Corpuscular Hemoglobin 28.6 pg (26-34); Mean Corpuscular Volume 90.4 fl (80-100); Mean Platelet Volume 7.7 fl (7.4-10.4); Monocytes Absolute Auto 0.6 K/mm3 (0.1-0.6); Neutrophils Absolute Auto 3.8 K/mm3 (1.3-6.7); Neutrophils Percent Auto 56.8 % (45.5-73.1); Platelet Count Result 377 k/mm3 (150-375); Red Blood Count 3.43 M/mm3 (4.2-5.4); Red Cell Distribution Width 15.1 % (11.5-14.5); White Blood Count 6.8 K/mm3 (4.5-10.0)
[2020-01-19 04:55] LABS: Blood Urea Nitrogen 11 mg/dL (7-17); Calcium 9.1 mg/dL (8.4-10.2); Carbon Dioxide 27 mmol/L (22-30); Chloride 105 mmol/L (98-107); Estimated CRCL calculation 106 ml/min; Estimated Glomerular Filt Rate > 60; Glucose 99 mg/dL (65-105); Potassium 3.8 mmol/L (3.4-5.0); Sodium 138 mmol/L (137-145)
[2020-01-19 06:00] VITALS: BP 128/48; PULSE 80; RESP 18; TEMP 36.4; O2SAT 97
[2020-01-19] MEDS: GABAPENTIN 300 MG CAPSULE 600 MG PO ×3 (06:10→20:42)
[2020-01-19] MEDS: SALMETEROL XINAFOATE 50 MCG DISKUS 1 PUFF INHALATION ×2 (08:24→19:41)
[2020-01-19 08:27] VITALS: O2SAT 94
[2020-01-19] MEDS: ASPIRIN 81 MG CHEWABLE TABLET PO (08:33)
[2020-01-19] MEDS: FERROUS SULFATE 324 MG TABLET PO (08:33)
[2020-01-19] MEDS: FLUTICASONE PROPIONATE 0.05% NA SPR 16 GM BTL (*BKC) 2 SPRAY NASAL (08:33)
[2020-01-19] MEDS: NABUMETONE 750 MG TABLET PO ×2 (08:33→17:03)
[2020-01-19] MEDS: DULOXETINE HCL 30 MG CAPSULE.DR PO (08:33)
[2020-01-19] MEDS: PANTOPRAZOLE 40 MG TABLET PO (08:34)
[2020-01-19] MEDS: LIDOCAINE 5% PATCH 1 PATCH TOPICAL (08:34)
[2020-01-19] MEDS: LORATADINE 10 MG TABLET PO (08:34)
[2020-01-19 14:00] VITALS: BP 120/58; PULSE 84; RESP 16; TEMP 36.6; O2SAT 94
--- NOTE | 2020-01-19 15:42 | WPDNEURORHBP ---
Subjective Date/time seen: 01/19/20 15:42 Interval history: this 59 year or year old is here after having had a right BKA. Her stump sugar has been change the dressing has been changed and it looks fairly decent she denies any headache nausea vomiting chest pain shortness breath fever chills sore throat Review of Systems Review of Systems: All systems reviewed & are unremarkable except as noted in HPI and below Functional Status Ambulation Ability Ability to Ambulate 10 Feet: Standby Assistance Ability to Ambulate 50 Feet With 2 Turns: Standby Assistance Ambulation Assistive Devices: Walker, Wheeled Exam Const: General: comfortable and no acute distress HENMT: General nose exam: Normal nares present Mouth: Yes moist mucous membranes Eyes: General: appearance normal, both eyes and all related structures Neck: Neck: supple and no JVD Resp: Effort & Inspection: normal respiratory effort Auscultation: clear to auscultation bilaterally Cardio: Rate: regular rate Rhythm: regular rhythm GI: GI Palp: Yes Soft to palpation Auscultation: normal bowel sounds Skin: General skin exam: normal color and no rashes or lesions noted Neuro: Other: patient is awake and alert well oriented time place person cranial exam is is normal is strength is improving the right BKA seems to be clean and healthy and well dressed with the new the stump vasquez incurred Extrem: Other: evidence of peripheral vascular disease and peripheral neuropathy stable and the stump looks clean Psych: Mental Status: mental status grossly normal Objective Data Vital Signs Vital Signs: Vital Signs - 24 hr 01/18/20 21:05 01/18/20 22:00 01/19/20 06:00 Temperature 36.4 C 36.4 C Pulse Rate 67 80 Respiratory Rate 18 18 Blood Pressure 128/74 128/48 L Pulse Oximetry 96 97 97 01/19/20 08:27 01/19/20 14:00 Temperature 36.6 C Pulse Rate 84 Respiratory Rate 16 Blood Pressure 120/58 L Pulse Oximetry 94 94 Intake/Output Intake/Output: Intake & Output 01/16/20 01/17/20 01/18/20 01/19/20 23:59 23:59 23:59 23:59 Intake Total 720 720 720 360 Balance 720 720 720 360 Meds/Results Medications: Active Medications Generic Name Dose Route Start Last Admin Trade Name Freq PRN Reason Stop Dose Admin Acetaminophen 500 mg 01/11/20 18:37 Tylenol Tablet PO Q6H PRN pain 1-5 Hydrocodone Bitart/Acetaminophen 1 tab 01/18/20 13:00 01/19/20 15:26 [place] 5-325 Mg PO 1 tab Q4HWA [facility] Administration Albuterol 2.5 mg 01/12/20 18:46 Albuterol Sulf Neb 2.5mg/0.5ml INHALATION Q4HRT PRN Shortness Of Breath Artificial Tears 1 drop 01/11/20 18:37 Artificial Tears EACH EYE TID PRN Dry Eye(S) Aspirin 81 mg 01/12/20 09:00 01/19/20 08:33 Aspirin Chewable PO 81 mg DAILY [facility] Administration Diphenoxylate HCl/Atropine 1 tablet 01/14/20 14:48 01/19/20 08:40 Lomotil Tab 2.5 Mg PO 1 tablet PRN PRN Administration Diarrhea Duloxetine HCl 30 mg 01/12/20 09:00 01/19/20 08:33 Cymbalta PO 30 mg DAILY [facility] Administration Ferrous Sulfate 324 mg 01/12/20 08:00 01/19/20 08:33 Ferrous Sulfate PO 324 mg DAILY@0800 [facility] Administration Fluticasone Propionate 2 spray 01/12/20 09:00 01/19/20 08:33 Flonase 0.05% Nasal [place] NASAL 2 spray DAILY [facility] Administration Gabapentin 600 mg 01/11/20 22:00 01/19/20 15:26 Neurontin PO 600 mg Q8HR [facility] Administration Lidocaine 1 patch 01/12/20 09:00 01/19/20 08:34 Lidoderm TOPICAL 1 patch DAILY [facility] Administration Loratadine 10 mg 01/12/20 09:00 01/19/20 08:34 Claritin PO 10 mg DAILY [facility] Administration Nabumetone 750 mg 01/12/20 08:00 01/19/20 08:33 Relafen PO 750 mg BIDWM [facility] Administration Pantoprazole Sodium 40 mg 01/12/20 09:00 01/19/20 08:34 Protonix PO 40 mg QAM [facility] Administration Polyethylene Glycol 17 gm 01/11/20 18:37 Miralax PO DAILY PRN
[2020-01-19 19:41] VITALS: PULSE 57
[2020-01-19 19:44] VITALS: PULSE 57; O2SAT 94
[2020-01-19] MEDS: SIMVASTATIN 20 MG TABLET 40 MG PO (20:42)
[2020-01-19 22:00] VITALS: BP 129/60; PULSE 51; RESP 18; TEMP 36.7; O2SAT 96
[2020-01-20] MEDS: GABAPENTIN 300 MG CAPSULE 600 MG PO ×3 (05:49→21:04)
[2020-01-20 06:00] VITALS: BP 109/58; PULSE 73; RESP 18; TEMP 36.5; O2SAT 96
[2020-01-20] MEDS: SALMETEROL XINAFOATE 50 MCG DISKUS 1 PUFF INHALATION ×2 (08:04→19:17)
[2020-01-20] MEDS: FERROUS SULFATE 324 MG TABLET PO (09:27)
[2020-01-20] MEDS: DULOXETINE HCL 30 MG CAPSULE.DR PO (09:27)
[2020-01-20] MEDS: NABUMETONE 750 MG TABLET PO ×2 (09:27→17:32)
[2020-01-20] MEDS: PANTOPRAZOLE 40 MG TABLET PO (09:28)
[2020-01-20] MEDS: ASPIRIN 81 MG CHEWABLE TABLET PO (09:28)
[2020-01-20] MEDS: FLUTICASONE PROPIONATE 0.05% NA SPR 16 GM BTL (*BKC) 2 SPRAY NASAL (09:28)
[2020-01-20] MEDS: LIDOCAINE 5% PATCH 1 PATCH TOPICAL (09:28)
[2020-01-20] MEDS: LORATADINE 10 MG TABLET PO (09:28)
[2020-01-20 14:00] VITALS: BP 132/62; PULSE 71; RESP 17; TEMP 36.3; O2SAT 99
--- NOTE | 2020-01-20 17:12 | WPDNEURORHBP ---
Subjective Date/time seen: 01/20/20 17:12 Interval history: this 59-year-old is woman is here after having had a right BKA issues doing fairly well denies any headache nausea vomiting chest pain shortness of breath fever chills sore throat Review of Systems Review of Systems: All systems reviewed & are unremarkable except as noted in HPI and below Functional Status Ambulation Ability Ability to Ambulate 10 Feet: Independent Ability to Ambulate 50 Feet With 2 Turns: Standby Assistance Ambulation Assistive Devices: Walker, Wheeled Exam Const: General: comfortable and no acute distress HENMT: General nose exam: Normal nares present Mouth: Yes moist mucous membranes Eyes: General: appearance normal, both eyes and all related structures Neck: Neck: supple and no JVD Resp: Effort & Inspection: normal respiratory effort Auscultation: clear to auscultation bilaterally Cardio: Rate: regular rate Rhythm: regular rhythm GI: GI Palp: Yes Soft to palpation Auscultation: normal bowel sounds Skin: General skin exam: normal color and no rashes or lesions noted Neuro: Other: she is awake alert will oriented time place and person apart from weakness and evidence of peripheral vascular disease she is still Extrem: Other: right BKA is stable Psych: Mental Status: mental status grossly normal Objective Data Vital Signs Vital Signs: Vital Signs - 24 hr 01/19/20 19:41 01/19/20 19:44 01/19/20 22:00 Temperature 36.7 C Pulse Rate 57 L 57 L 51 L Respiratory Rate 18 Blood Pressure 129/60 Pulse Oximetry 94 96 01/20/20 06:00 01/20/20 14:00 Temperature 36.5 C 36.3 C L Pulse Rate 73 71 Respiratory Rate 18 17 Blood Pressure 109/58 L 132/62 Pulse Oximetry 96 99 Intake/Output Intake/Output: Intake & Output 01/17/20 01/18/20 01/19/20 01/20/20 23:59 23:59 23:59 23:59 Intake Total 720 720 600 480 Balance 720 720 600 480 Meds/Results Medications: Active Medications Generic Name Dose Route Start Last Admin Trade Name Freq PRN Reason Stop Dose Admin Acetaminophen 500 mg 01/11/20 18:37 Tylenol Tablet PO Q6H PRN pain 1-5 Hydrocodone Bitart/Acetaminophen 1 tab 01/18/20 13:00 01/20/20 15:00 [place] 5-325 Mg PO 1 tab Q4HWA [facility] Administration Albuterol 2.5 mg 01/12/20 18:46 Albuterol Sulf Neb 2.5mg/0.5ml INHALATION Q4HRT PRN Shortness Of Breath Artificial Tears 1 drop 01/11/20 18:37 Artificial Tears EACH EYE TID PRN Dry Eye(S) Aspirin 81 mg 01/12/20 09:00 01/20/20 09:28 Aspirin Chewable PO 81 mg DAILY [facility] Administration Diphenoxylate HCl/Atropine 1 tablet 01/14/20 14:48 01/19/20 08:40 Lomotil Tab 2.5 Mg PO 1 tablet PRN PRN Administration Diarrhea Duloxetine HCl 30 mg 01/12/20 09:00 01/20/20 09:27 Cymbalta PO 30 mg DAILY [facility] Administration Ferrous Sulfate 324 mg 01/12/20 08:00 01/20/20 09:27 Ferrous Sulfate PO 324 mg DAILY@0800 [facility] Administration Fluticasone Propionate 2 spray 01/12/20 09:00 01/20/20 09:28 Flonase 0.05% Nasal [place] NASAL 2 spray DAILY [facility] Administration Gabapentin 600 mg 01/11/20 22:00 01/20/20 15:00 Neurontin PO 600 mg Q8HR [facility] Administration Lidocaine 1 patch 01/12/20 09:00 01/20/20 09:28 Lidoderm TOPICAL 1 patch DAILY [facility] Administration Loratadine 10 mg 01/12/20 09:00 01/20/20 09:28 Claritin PO 10 mg DAILY [facility] Administration Nabumetone 750 mg 01/12/20 08:00 01/20/20 09:27 Relafen PO 750 mg BIDWM [facility] Administration Pantoprazole Sodium 40 mg 01/12/20 09:00 01/20/20 09:28 Protonix PO 40 mg QAM [facility] Administration Polyethylene Glycol 17 gm 01/11/20 18:37 Miralax PO DAILY PRN Constipation Salmeterol Xinafoate 1 puff 01/11/20 20:00 01/20/20 08:04 Serevent 50 Mcg Diskus INHALATION 1 puff Q12HRT [facility] Administration Senna/Docusate Sodium 1 tab 01/11/20 18:37 Senokot S Tablet
[2020-01-20 19:18] VITALS: PULSE 77; RESP 18; O2SAT 97
[2020-01-20] MEDS: SIMVASTATIN 20 MG TABLET 40 MG PO (21:05)
[2020-01-20 22:00] VITALS: BP 136/70; PULSE 82; RESP 18; TEMP 36.8; O2SAT 100
[2020-01-21] MEDS: GABAPENTIN 300 MG CAPSULE 600 MG PO ×3 (05:34→20:38)
[2020-01-21 06:00] VITALS: BP 165/85; PULSE 85; RESP 18; TEMP 36.6; O2SAT 99
[2020-01-21] MEDS: ASPIRIN 81 MG CHEWABLE TABLET PO (08:13)
[2020-01-21] MEDS: DULOXETINE HCL 30 MG CAPSULE.DR PO (08:13)
[2020-01-21] MEDS: NABUMETONE 750 MG TABLET PO ×2 (08:13→17:00)
[2020-01-21] MEDS: FERROUS SULFATE 324 MG TABLET PO (08:13)
[2020-01-21] MEDS: LORATADINE 10 MG TABLET PO (08:14)
[2020-01-21] MEDS: FLUTICASONE PROPIONATE 0.05% NA SPR 16 GM BTL (*BKC) 2 SPRAY NASAL (08:14)
[2020-01-21] MEDS: PANTOPRAZOLE 40 MG TABLET PO (08:14)
[2020-01-21] MEDS: LIDOCAINE 5% PATCH 1 PATCH TOPICAL (08:14)
--- NOTE | 2020-01-21 13:16 | PCDIET ---
Nutrition Follow-Up Complete: Nutrition Diagnosis: Altered nutrition related labs related to glucose metabolism as evidenced by HgbA1C of 6.3%. Nutrition Goal: Patient to consume 75% of meals or greater. Goal met. Patient consuming 100% of most meals on regular diet. No c/o - patient eager for anticipated discharge tomorrow. Last recorded weight is 87.6 kg. Recommend obtaining new weight. Bowel Motility: Last documented BM on 01/20/20/ Labs Reviewed: Hgb (9.8), Hct (31.0), Cr (0.5) Meds Noted: Albuterol, Ferrous Sulfate, Protonix, Miralax, Senokot Additional Notes: Right leg surgical incision. No other skin breakdown documented. Will continue to monitor with same goal if patient remains in house. Nutrition Monitoring and Evaluation: Follow up every 7 days.
[2020-01-21 14:00] VITALS: BP 138/82; PULSE 87; RESP 16; TEMP 36.7; O2SAT 96
[2020-01-21 20:00] VITALS: PULSE 67; RESP 18; O2SAT 96
[2020-01-21] MEDS: SIMVASTATIN 20 MG TABLET 40 MG PO (20:37)
[2020-01-21] MEDS: SALMETEROL XINAFOATE 50 MCG DISKUS 1 PUFF INHALATION (20:58)
[2020-01-21 21:00] VITALS: PULSE 77; RESP 18; O2SAT 97
[2020-01-21 22:00] VITALS: BP 141/70; PULSE 67; RESP 18; TEMP 36.8; O2SAT 96
[2020-01-22] MEDS: GABAPENTIN 300 MG CAPSULE 600 MG PO ×2 (05:10→07:39)
[2020-01-22 06:00] VITALS: BP 125/58; PULSE 68; RESP 18; TEMP 36.2; O2SAT 99
[2020-01-22] MEDS: ASPIRIN 81 MG CHEWABLE TABLET PO (07:38)
[2020-01-22] MEDS: NABUMETONE 750 MG TABLET PO (07:38)
[2020-01-22] MEDS: FERROUS SULFATE 324 MG TABLET PO (07:38)
[2020-01-22] MEDS: PANTOPRAZOLE 40 MG TABLET PO (07:39)
[2020-01-22] MEDS: LORATADINE 10 MG TABLET PO (07:39)
[2020-01-22] MEDS: FLUTICASONE PROPIONATE 0.05% NA SPR 16 GM BTL (*BKC) 2 SPRAY NASAL (07:39)
[2020-01-22] MEDS: LIDOCAINE 5% PATCH 1 PATCH TOPICAL (07:39)
[2020-01-22] MEDS: DULOXETINE HCL 30 MG CAPSULE.DR PO (07:39)
[2020-01-22] MEDS: SALMETEROL XINAFOATE 50 MCG DISKUS 1 PUFF INHALATION (08:50)
[2020-01-22 08:56] VITALS: O2SAT 98
--- NOTE | 2020-01-22 12:12 | WPDNEURORHBP ---
Subjective Date/time seen: 01/22/20 12:12 Interval history: This 59-year-old has been here for right BKA she has done well and is to be discharged today. She denies any headache nausea vomiting chest pain shortness of breath fever chills sore throat medications will be reviewed and reconciled instructions will be given Review of Systems Review of Systems: All systems reviewed & are unremarkable except as noted in HPI and below Functional Status Ambulation Ability Ability to Ambulate 10 Feet: Independent Ability to Ambulate 50 Feet With 2 Turns: Standby Assistance Ambulation Assistive Devices: Walker, Wheeled Exam Const: General: comfortable and no acute distress HENMT: General nose exam: Normal nares present Mouth: Yes moist mucous membranes Eyes: General: appearance normal, both eyes and all related structures Neck: Neck: supple and no JVD Resp: Effort & Inspection: normal respiratory effort Auscultation: clear to auscultation bilaterally Cardio: Rate: regular rate Rhythm: regular rhythm GI: GI Palp: Yes Soft to palpation Auscultation: normal bowel sounds Skin: General skin exam: normal color and no rashes or lesions noted Neuro: Other: patient is awake and alert well oriented time place and person her cranial exam shows normal her strength is significantly improved for overall physical and mental status has improved from the time she was admitted to us Extrem: Other: for right BKA, she is doing well and is to be followed by the vascular surgeon Psych: Mental Status: mental status grossly normal Objective Data Vital Signs Vital Signs: Vital Signs - 24 hr 01/21/20 14:00 01/21/20 20:00 01/21/20 21:00 Temperature 36.7 C Pulse Rate 87 67 77 Respiratory Rate 16 18 18 Blood Pressure 138/82 Pulse Oximetry 96 96 97 01/21/20 22:00 01/22/20 06:00 01/22/20 08:56 Temperature 36.8 C 36.2 C L Pulse Rate 67 68 Respiratory Rate 18 18 Blood Pressure 141/70 H 125/58 L Pulse Oximetry 96 99 98 Intake/Output Intake/Output: Intake & Output 01/19/20 01/20/20 01/21/20 01/22/20 23:59 23:59 23:59 23:59 Intake Total 600 720 560 240 Balance 600 720 560 240 Meds/Results Medications: Active Medications Generic Name Dose Route Start Last Admin Trade Name Freq PRN Reason Stop Dose Admin Acetaminophen 500 mg 01/11/20 18:37 Tylenol Tablet PO Q6H PRN pain 1-5 Hydrocodone Bitart/Acetaminophen 1 tab 01/18/20 13:00 01/22/20 07:39 [place] 5-325 Mg PO 1 tab Q4HWA [facility] Administration Albuterol 2.5 mg 01/12/20 18:46 Albuterol Sulf Neb 2.5mg/0.5ml INHALATION Q4HRT PRN Shortness Of Breath Artificial Tears 1 drop 01/11/20 18:37 Artificial Tears EACH EYE TID PRN Dry Eye(S) Aspirin 81 mg 01/12/20 09:00 01/22/20 07:38 Aspirin Chewable PO 81 mg DAILY [facility] Administration Diphenoxylate HCl/Atropine 1 tablet 01/14/20 14:48 01/19/20 08:40 Lomotil Tab 2.5 Mg PO 1 tablet PRN PRN Administration Diarrhea Duloxetine HCl 30 mg 01/12/20 09:00 01/22/20 07:39 Cymbalta PO 30 mg DAILY [facility] Administration Ferrous Sulfate 324 mg 01/12/20 08:00 01/22/20 07:38 Ferrous Sulfate PO 324 mg DAILY@0800 [facility] Administration Fluticasone Propionate 2 spray 01/12/20 09:00 01/22/20 07:39 Flonase 0.05% Nasal [place] NASAL 2 spray DAILY [facility] Administration Gabapentin 600 mg 01/11/20 22:00 01/22/20 07:39 Neurontin PO 600 mg Q8HR [facility] Administration Lidocaine 1 patch 01/12/20 09:00 01/22/20 07:39 Lidoderm TOPICAL 1 patch DAILY [facility] Administration Loratadine 10 mg 01/12/20 09:00 01/22/20 07:39 Claritin PO 10 mg DAILY [facility] Administration Nabumetone 750 mg 01/12/20 08:00 01/22/20 07:38 Relafen PO 750 mg BIDWM [facility] Administration Pantoprazole Sodium 40 mg 01/12/20 09:00 01/22/20 07:39 Protonix PO 40 mg QAM [facility] Administration Polyethylene Glycol 17 gm 01/11/20 18:37
[2020-01-22 14:00] VITALS: BP 132/64; PULSE 74; RESP 20; TEMP 36.6; O2SAT 99
--- NOTE | 2020-01-25 11:48 | PM.DS ---
DS: Admitting Diagnosis Admitting Diagnosis Admitting Diagnosis: Other acute osteomyelitis, right ankle and foot DS: Discharge Diagnosis Discharge Diagnosis (1) Neuropathy: Code(s): G62.9 - Polyneuropathy, unspecified Status: Acute (2) PVD (peripheral vascular disease): Code(s): I73.9 - Peripheral vascular disease, unspecified Status: Acute (3) COPD (chronic obstructive pulmonary disease): Code(s): J44.9 - Chronic obstructive pulmonary disease, unspecified Status: Acute (4) Hypertension: Code(s): I10 - Essential (primary) hypertension Status: Acute (5) Amputated below knee: Code(s): S88.119A - Complete traumatic amputation at level between knee and ankle, unspecified lower leg, initial encounter Status: Acute DS: Summary Hospital Course Reason for hospitalization: this 59-year-old woman was here after having had the right [id number] amputation with her medical diagnosis mentioned above she received the physical therapy of compression therapy and the medical management and was able to be discharged home with home health with the improvement in the quality improvement measures as follo Hospital Course: ws the improved measures as follows Eating was independent oral hygiene was independent toileting was independent bathing is independent upper body dressing independent lower body dressing independent footwear was independent rolling in bed independent sitting to lying independent lying to sitting independent [id number] independent chair transfers independent toilet transfers independent car transfers independent walking 10 feet independent walking 50 feet with 2 steps patient was unable to walking 150 feet patient was unable to walking 10 feet uneven surfaces supervision walker bar steps supervision 4 steps patient was unable to 12 steps patient was unable to be came object independent wheelchair 50 feet independent and wheelchair 150 feet independent patient was sent home with home health Time Spent with Patient Time attestation: Total time spent providing and/or coordinating discharge services: Exam Const: General: comfortable, no acute distress and uncomfortable HENMT: General nose exam: Normal nares present Mouth: Yes dry mucous membranes Eyes: General: appearance normal, both eyes and all related structures Neck: Neck: supple and no JVD Resp: Effort & Inspection: normal respiratory effort Auscultation: clear to auscultation bilaterally Cardio: Rate: regular rate Rhythm: regular rhythm GI: GI Palp: Yes Soft to palpation Auscultation: normal bowel sounds Skin: General skin exam: normal color and no rashes or lesions noted Neuro: Other: patient has generalized weakness and strength has improved she of course does have a peripheral vascular disease and underlying peripheral neuropathy Extrem: Other: the amputation site was clean and healthy Psych: Mental Status: mental status grossly normal Discharge Plan Discharge Attending physician on discharge: Matthieu Sesay Discharging Clinician: Matthieu Sesay Anticipated Discharge Date/Time: 01/22/20 12:15 Patient Disposition: Home Health Service Activity: may shower, as tolerated and other - see discharge instructions Diet: as tolerated and regular Wound Care Instructions: change dressing daily and other - see discharge instructions Discharge Instructions: cleanse incision line to your stump with normal saline/sterile water/wound cleanser, pat dry. apply xeroform to incision line, cover with 4x4 gauze, wrap with emilee wrap and secure with tape. binder to be worn until you follow up with your orthopedic surgeon do no place weight on right leg please continue to hold lisinopril, HCTX and spironolactone. Your blood pressure has been well controlled without these medications. YOU WILL NEED TO GET A REPEAT CT OF THE HEAD WITHOUT CONTRAST AFTER DISCHARGE FROM REHAB. [facility] CAT SCAN [phone]
== END 2020-01-22 16:30 | disposition home health service (06) | DRG 561 ==
PROVIDERS: Admitting Provider Psychiatry & Neurology Neurology; PCP Family Medicine; Visit Provider Psychiatry & Neurology Neurology
DX: Z47.81 Encounter for orthopedic aftercare following surgical amputation (principal); Z89.511 Acquired absence of right leg below knee; D50.9 Iron deficiency anemia, unspecified; I73.9 Peripheral vascular disease, unspecified; G62.9 Polyneuropathy, unspecified; D47.3 Essential (hemorrhagic) thrombocythemia; E78.5 Hyperlipidemia, unspecified; F32.9 Major depressive disorder, single episode, unspecified; G89.29 Other chronic pain; I10 Essential (primary) hypertension; I25.10 Atherosclerotic heart disease of native coronary artery without angina pectoris; I95.89 Other hypotension; J44.9 Chronic obstructive pulmonary disease, unspecified; K21.9 Gastro-esophageal reflux disease without esophagitis; M54.9 Dorsalgia, unspecified; Z85.44 Personal history of malignant neoplasm of other female genital organs; Z87.891 Personal history of nicotine dependence
CPT/HCPCS: 36415; 80048; 83036; 85025; 94640; 97110; 97116; 97161; 97166; 97530; 97535; 97542; A9270